=== PATIENT | female | born 1950 | race African-American/Black ===

== ENCOUNTER 2021-08-23 17:26 | Emergency (ER) | payer MEDICARE, OTHER ==
[~2021-08-23] VITALS: Ht 160 cm; Wt 108.9 kg
[2021-08-23 22:34] LABS: Urine Bacteria FEW /hpf (None Seen); Urine Blood 1+ /uL (Negative); Urine Specific Gravity 1.026 (1.001-1.035); Urine WBC 107 /hpf (0 - 5)
[2021-08-24] MEDS ORDERED: LEVO500T31 PO (00:09)
[2021-08-24] MEDS ORDERED: HYDR-4902 PO (00:09)
[2021-08-24] MEDS ORDERED: HYDROcodone-ACET 10/325MG TAB PO ONE (00:15)
[2021-08-24 01:53] VITALS: BP 185/87
== END 2021-08-24 02:11 | disposition home or self-care (01) ==
LOC: ER 17:26
DX: N39.0 Urinary tract infection, site not specified (principal); D35.00 Benign neoplasm of unspecified adrenal gland; N20.0 Calculus of kidney; N28.1 Cyst of kidney, acquired; K57.90 Diverticulosis of intestine, part unspecified, without perforation or abscess without bleeding; K42.9 Umbilical hernia without obstruction or gangrene; I10 Essential (primary) hypertension
CPT/HCPCS: 74176; 81001